=== PATIENT | male | born 1980 | race Caucasian/White ===

== ENCOUNTER → 2022-06-19 11:05 | Outpatient (BNVA) | payer MEDICAID, SELFPAY | PROVIDERS: PCP Registered Nurse; Visit Provider Surgery | DX: L72.11 Pilar cyst (principal) | CPT/HCPCS: 99202 ==

== ENCOUNTER 2022-07-06 10:42 | Outpatient (REF) | payer MEDICAID, SELFPAY ==
[2022-07-06 10:46] VITALS: BP 146/83; PULSE 89; RESP 16; TEMP 36.6; O2SAT 98
[2022-07-06 10:48] VITALS: BMI 21.7
[2022-07-06 11:50] VITALS: BP 128/85; PULSE 81; RESP 16; O2SAT 98
--- NOTE | 2022-07-06 11:53 | W.PM.OPN ---
Operative Note Operative Note Date of Service: 07/06/22 Narrative: Preop diagnosis: [2.5x2.3cm scalp cyst] Postop diagnosis: [same] Procedure: Excision of 2.5 by 2.3 cm scalp cyst with primary closure Surgeon: Patrick Heard MD Assist: [] Anesthesia: [Lidocaine, 1%/bupivacaine, 0.5% with epi in a 50 50 mix] Estimated blood loss: [3cc] Specimen: [Scalp cyst] Intraoperative findings: [None infected scalp cyst] Indications: [The patient is a 41-year-old gentleman who has had a longstanding cyst on his scalp that is becoming enlarged and progressively symptomatic regarding grooming. There has been no symptoms of infection or drainage. The option of continued observation versus excision were reviewed as well as the inherent risks of bleeding, infection, recurrence of other cysts, possible need for another procedure or delayed healing in the event of a complication and a scar. Patient seemed understand his options and wanted to proceed.] Procedure: [The patient was identified in the minor procedure room and an appropriate timeout confirming the patient and the procedure performed. He has no allergies and after being seated with his head at roughly 45 degrees, his scalp cyst was properly identified and prepped with Betadine that was allowed to dry. He was then draped in the usual manner and the local mix infiltrated with excellent effect. A 3 cm incision was made sharply and carried to the cyst wall. The cyst was then carefully removed with sharp and blunt dissection and in doing this, the capsule tore expressing its contents. Once the cyst was completely removed it was sent for permanent section and the pocket irrigated copiously with the remaining local. Under loupe magnification, there is no evidence of ongoing bleeding so the skin was closed with interrupted 3-0 surgipro sutures. There is washed and dried and bacitracin applied followed by an ice pack. Patient tolerated the procedure well and discharge instructions were reviewed and questions answered. He will see me in 1 week for suture removal, sooner if he has problems.]
== END 2022-07-06 10:43 | disposition home or self-care (01) ==
LOC: HO.MS 10:42
PROVIDERS: PCP Registered Nurse; Visit Provider Surgery
PROC: (CPT 11423; principal; 2022-07-06 11:00)
DX: L72.11 Pilar cyst (principal)
CPT/HCPCS: 11423; 88304

== ENCOUNTER → 2022-07-13 10:31 | Outpatient (BNVA) | payer MEDICAID, SELFPAY | PROVIDERS: PCP Registered Nurse; Visit Provider Surgery | DX: Z13.89 Encounter for screening for other disorder (principal) ==

== ENCOUNTER 2025-04-14 14:22 | Outpatient (REF) | payer MEDICAID, SELFPAY ==
--- OUTSIDE RECORDS SUMMARY | 2025-04-14 14:00 | XMS_ITS | Encounter Summary ---
Author Organization [employer] Address [address] [place] [address] Care Team Providers Care Chainer Name Role Phone [facility] Primary Care Provider Reason for Visit * Reason Comments Diabetes Encounter Details Date Type Department Care Team ([facility] st Contact Info) Description 04/14/2025 2:00 PM EDT Office Visit [facility] [address], [place] [id number] [facility] [address] [place] [address] Diabetes mellitus without complication (HCC) Social History Tobacco Use Types Packs/Day Years Used Date Smoking Tobacco: Former Cigarettes Passive Smoke Exposure: Past Smokeless Tobacco: Never Tobacco Cessation:Counseling Given: Not Answered Alcohol Use Standard Drinks/Week Comments Never 0 (1 standard drink = 0.6 oz pur e alcohol) Depression Answer Date Recorded Patient Health Questionnaire-9 Score 0 04/14/2025 Patient Health Questionnaire-9 Score 0 04/14/2025 Last PHQ-9: Questionnaire Data Not on file 1 Housing Stability Answer Date Recorded What is your housing situation today? I have barrington simpson 10/28/[address] you li ve. Do you have problems with any of the following? None of the above 10/28/2024 Food Insecurity Answer Date Recorded Within the past 12 months, y ou worried that your food would run out before you got money to buy more: Never True 10/28/2024 Within the past 12 months,th e food you bought just didn't last and you didn't have enough money to get more: Never True Transportation Answer Date Recorded In the past 12 months, has l ack of transportation kept you from medical appts, meetings, work or from getting things needed for daily living? No 10/28/2024 Utilities Answer Date Recorded In the past 12 months, has t he electric, gas, oil or water company threatened to shut off services in your home? No 10/28/2024 Depression Answer Date Recorded Patient Health Questionnaire-2 Score 0 04/14/2025 Internet Access Answer Date Recorded Internet Access Q1 Yes 10/28/2024 Internet Access Q2 Not on file 10/28/2024 Sex and Gender Information Value Date Recorded Sex Assigned at Male 04/30/2022 10:17 AM EDT Legal Sex Male 10:17 AM EDT Gender Identity Male 04/30/2022 10:17 AM EDT Sexual Orientation Straight 04/30/2022 10 :17 AM EDT documented as of this encounter Last Filed Vital Signs Vital Sign Reading Time Taken Comments Blood Pressure 130/86 04/14/2025 1:52 PM EDT Pulse 78 04/14/2025 1:52 PM EDT Temperature 36.3 C (97.4 F) 04/14/2025 1:52 PM EDT Respiratory Rate 18 04/14/2025 1:52 PM EDT Oxygen Saturation - - Inhaled Oxygen Concentration - - Weight 73.9 kg (163 lb) 04/14/2025 1:52 PM EDT Height 182.9 cm (6') 04/14/2025 1:52 PM EDT Body Mass Index 22.11 04/14/2025 1:52 PM EDT documented in this encounter Functional Status * Over the past 2 weeks, how often have you been bothered by any of the following problems? Question Answer Date of Assessment Author Patient Health Questionnaire-2 Score 0 04/14/2025 1:59 PM EDT Anu Gupta MA * Little interest or pleasure in doing things Answer Date of Assessment Author Not at all 04/14/2025 1:59 PM EDT Anu Gordon MA * Feeling down, depressed, or hopeless Answer Date of Assessment Author Not at all 04/14/2025 1:59 PM EDT Anu Gordon MA * Trouble falling or staying asleep, or sleeping too much Answer Date of Assessment Author Not at all 04/14/2025 1:59 PM EDT Anu Gordon MA * Feeling tired or having little energy Answer Date of Assessment Author Not at all 04/14/2025 1:59 PM EDT Anu Gordon MA * Poor appetite or overeating Answer Date of Assessment Author Not at all 04/14/2025 1:59 PM EDT Anu Gordon MA * Feeling bad about yourself - or that you are a failure or have let yourself or your family down Answer Date of Assessment Author Not at all 04/14/2025 1:59 PM EDT Anu Gordon MA * Trouble concentrating on things, such as reading the newspaper or watching television Answer Date of Assessment Author Not at all 04/14/2025 1:59 PM EDT Anu Gordon MA * Moving or speaking so slowly that other people could have noticed? Or the opposite - being so fidgety or restless that you have been moving around a lot more than usual. Answer Date of Assessment Author Not at all 04/14/2025 1:59 PM EDT Anu Gordon MA * Thoughts that you would be better off or hurting yourself in some way Answer Date of Assessment Author Not at all 04/14/2025 1:59 PM EDT Anu Gordon MA * Patient Health Questionnaire-9 Score Answer Date of Assessment Author 0 04/14/2025 1:59 PM EDT Anu Gordon MA * Over the last 2 weeks, how often have you been bothered by any of the following problems? Question Answer Date of Assessment Author Feeling nervous, anxious, or on edge 0 04/14/2025 1:59 PM EDT Anu Gupta MA Not being able to stop or control worrying 0 04/14/2025 1:59 PM EDT Anu Gupta MA Worrying too much about different things 0 04/14/2025 1:59 PM EDT Anu Gupta MA Trouble relaxing 0 04/14/2025 1:59 PM EDT R Anu Munoz MA Being so restless that it is hard to sit still 0 04/14/2025 1:59 PM EDT Anu Gupta MA Becoming easily annoyed or irritable 0 04/14/2025 1:59 PM EDT Anu Gupta MA Feeling afraid as if something awful might happen 0 04/14/2025 1:59 PM EDT Anu Gunderson MA DAVID-7 Total Score 0 04/14/2025 1:59 PM EDT Anu Gupta MA documented as of this encounter Plan of Treatment Scheduled Orders Name Type Priority Associated Diagnoses Orde r Schedule Lipid Panel, Standard Lab Routine Diabetes mellitus without complication (HCC) Expected: 04/14/2025 (Approximate), Expires: 04/14/2026 Basic Metabolic Panel Lab Routine Diabetes mellitus without complication (HCC) Expected: 04/14/2025 (Approximate), Expires: 04/14/2026 documented as of this encounter Procedures Procedure Name Priority Date/Time Associated Diagnosis Comments ALBUMIN, RANDOM URINE W/CREATININE Routine 04/14/2025 2:31 PM EDT Diabetes mellitus without complication (HCC) POCT GLYCATED HEMOGLOBIN, TOTAL Routine 04/14/2025 2:05 PM EDT Diabetes mellitus without complication (HCC) POCT GLUCOSE Routine 04/14/2025 2:00 PM EDT Diabetes mellitus without complication (HCC) documented in this encounter Results * Albumin, Random Urine W/Creatinine (04/14/2025 2:31 PM EDT) Creatinine, Urine 274.27 mg/dL [facility] Microalbumin Urine 23.0 mg/L H [facility] Microalbum Creatinine Ratio Ur 8.3 <30 ug/mg cr [facility] Comment:Albumin/Creatinine R atio Reference Ranges: Normal: < 30 ug/mg creatinine Microalbuminuria: 30 - 300 ug/mg creatinineClinical Albuminuria: > 300 ug/mg creatinine Urine 04/14/2025 2:31 PM EDT 04/14/2025 3:59 PM EDT Result [facility] URINE ORDERABLES Final Re sult [facility] [address] [place] [address] [phone] * (ABNORMAL) POCT Hgb A1c (04/14/2025 2:05 PM EDT) Hemoglobin A1C 5.9(A) 4.0 - 5.7 % Blood 04/14/2025 2:05 PM EDT Result [facility] POINT OF CARE TEST ENTER/EDIT ORDERABLES Final Result * POCT Glucose (04/14/2025 2:00 PM EDT) Glucose Blood, POC 113 60 - 200 mg/dL Blood Capillary blood specimen / Unknown 04/14/2025 2:00 PM EDT Result [facility] POINT OF CARE TEST ENTER/EDIT ORDERABLES Final Result documented in this encounter Visit Diagnoses Diagnosis Diabetes mellitus without complication (HCC) Type II or unspecified type diabetes mellitus without mention of complication, not stated as uncontrolled documented in this encounter Additional Health Concerns Assessment Noted Time PHQ-9 Depression Total Score: 0 04/14/20 25 1:59 PM EDT documented as of this encounter Care Teams Chainer Relationship Specialty Start Date End Date Esmont Lesli [facility] [address] [place] [id number] PCP - General Family Medicine 12/12/22 documented as of this encounter
[2025-04-14 16:39] LABS: Anion Gap 10 (12-20); Blood Urea Nitrogen 24 mg/dL (9-16); Calcium 10.1 mg/dL (8.4-10.2); Carbon Dioxide 27 mmol/L (22-29); Chloride 104 mmol/L (96-108); Cholesterol 236 mg/dL (<200); Estimated Glomerular Filt Rate 46; HDL Cholesterol 44 mg/dL (>40); Potassium 4.3 mmol/L (3.3-5.1); Sodium 137 mmol/L (135-145); Triglycerides 117 mg/dL (<150)
[2025-04-14 17:29] LABS: Microalbum/Creatinine Ratio Ur 8.3 ug/mg cr (<30)
--- OUTSIDE RECORDS SUMMARY | 2025-04-14 18:09 | XMS_ITS | Clinical Summary ---
Author Organization [employer] Address [address] [facility] 7t [place] [address] Care Team Providers Care Railroad Car Cleaning Supervisor Name Role Phone Lesli Perez [facility] Primary Care Provider [phone] Allergies No known active allergies Medications * This document contains information received from the source organization and may not represent a complete record from that organization. Propylene Glycol-Glycerin (Artificial Tears) 1-0.3 % solution Administer 1 application into affected eye(s) 4 times daily. 15 mL 01/19/20 23 Active melatonin 5 MG tabletIndications: Anxiety Take 1 tablet by oral route every evening 2-3 hours before bed 90 tablet 3 09/23/19 24 Active hydrOXYzine HCl (Atarax) 25 MG tabletIndications: Anxiety TAKE 1 TABLET (25 MG) BY MOUTH EVERY 6 (SIX) HOURS IF NEEDED FOR ANXIETY. 120 tablet 10/22/19 24 Active rosuvastatin (Crestor) 10 MG tabletIndications: Mixed hyperlipidemia TAKE 1 TABLET BY MOUTH AT BEDTIME 90 tablet 3 10/17/19 25 Active olmesartan (BENIcar) 5 MG tabletIndications: Primary hypertension TAKE 1 TABLET BY MOUTH EVERY DAY IN THE MORNING 90 tablet 3 10/17/19 25 Active Alcohol Swabs (Alcohol Prep) padsIndications:Di abetes mellitus without complication (HCC) Use one pad each to prep skin prior to injection as directed 100 each 10/29/19 25 Active glucose blood test stripIndications:D iabetes mellitus without complication (HCC) Use as directed to check blood sugar three times daily 100 each 12 10/29/19 25 Active TRUEplus Lancets 33G miscIndications:Di abetes mellitus without complication (HCC) USE TO CHECK BLOOD SUGAR THREE TIMES A DAY 100 each 3 10/31/19 25 Active Blood Glucose Monitoring Suppl (FreeStyle Lite) w/Device kitIndications:Danika betes mellitus without complication (HCC) 1 each 3 times daily. USE TO CHECK BLOOD SUGAR THREE TIMES A DAY 1 kit 10/31/19 25 Active glucose blood (FREESTYLE LITE) test stripIndications:D iabetes mellitus without complication (HCC) USE TO CHECK BLOOD SUGAR THREE TIMES A DAY 100 each 3 10/31/19 25 Active Active Problems Problem Noted Date Diagnosed Date Primary hypertension 09/11/2022 Overview (12/12/2022): Olmesartan 5mg daily Prior intolerance to ACEi (cough) Maintenance: BMP: 08/2022 Lipid Panel: 08/2022 ASCVD Risk: 1.9% EKG: Obtain baseline at f/u - Aerobic exercise to reduce BP. Initial goal of 30 min walk 3-5x/week. Increase as tolerated. - low-sodium diet (goal: <2g/day) and heart healthy diet such as DASH to reduce BP and prevent ASCVD. - Home BP monitoring 1-2 x day with goal of <140/90. - Seek immediate medical attention for chest pain, palpitations, SOB, syncope, or sudden changes in mental status. - Do not change or discontinue current prescriptions without first consulting health care provider Assessment & Plan (03/18/2023 1:50 PM EDT): Well controlled Continue current regimen Assessment & Plan (12/12/2022 9:39 AM EDT): Well controlled Continue current regimen Assessment & Plan (09/11/2022 1:12 PM EDT): Well controlled Routine labs ordered today Continue current regimen Mixed hyperlipidemia 09/11/2022 Overview (09/11/2022): Rosuvastatin 10mg daily Assessment & Plan (03/18/2023 1:51 PM EDT): Well controlled Continue current regimen Assessment & Plan (12/12/2022 9:39 AM EDT): Well controlled continue current regimen Assessment & Plan (09/11/2022 1:15 PM EDT): Repeat lipid panel ordered today Continue current regimen Diabetes mellitus without complication Overview (12/12/2022): Metformin 500mg xr daily (unable to tolerate high dose d/t GI s/e) Adheres to strict diet BMP: 08/2022 Microalbumin: Pending Foot Exam: 11/2022 Risk 0 Eye Exam: [facility] eye care Lipid panel:08/2022 ASCVD: 1.9% Statin: Yes ASA: No RAMONA/ARB: Yes Encouraged regular aerobic exercise for improved glycemic control Encouraged daily foot checks Encouraged lean protein snacks and to avoid foods high in sugar and simple carbohydrates Treatment Goals: A1c goal: <7% FBG goal: <130 2 hour post prandial goal: <180 Assessment & Plan (03/18/2023 1:50 PM EDT): Lab Results Component Value Date HGBA1C 5.9 03/18/2023 STOP metformin Continue to manage with diet only Assessment & Plan (12/12/2022 9:38 AM EDT): Well controlled Continue current regimen Lab Results Component Value Date HGBA1C 6.1 (A) 09/05/2022 Assessment & Plan (09/11/2022 1:14 PM EDT): Lab Results Component Value Date HGBA1C 6.1 (A) 09/05/2022 Continue current regimen BS well controlled Resolved Problems Problem Noted Date Diagnosed Date Resolved Date Stye 01/18/2023 04/24/2024 Assessment & Plan (01/18/2023 3:37 PM EDT): Pt w likely stye ,slight enlarged Normal vision and no concern x cellulitis -advised warm compresses -tylenol prn -eye lubricant -will do keflex BIDx 5 days x noted slight larger -alarm signs and symptoms explained to pt Impacted ear wax 01/18/2023 04/24/2024 Assessment & Plan (01/18/2023 3:37 PM EDT): Dry wax in right ear -trial w debrox x 4 to 5 days Encounters Date Type Department Care Team Description 04/14/2025 2:00 PM EDT Office Visit [facility] MED[facility] [address] [place] [address] [facility] Diabetes mellitus without complication (HCC) 04/14/2025 Travel 04/06/2025 Patient Outreach [facility] [address] [place] [address] [facility] Pre-visit Planning (Pre-visit planning - LVM ) from Last 3 Months Immunizations Immunization Administration Dates Next Due Tdap 09/05/2022 Family History Medical History Relation Name Comments Colon cancer Father's Brother Diabetes type II Maternal Grandfather Diabetes type II Mother Diabetes type II Paternal Grandmother Relation Name Status Comments Father's Brother Maternal Grandfather Mother Paternal Grandmother Social History Tobacco Use Types Packs/Day Years [...] Orientation Straight 04/30/2022 10 :17 AM EDT Last Filed Vital Signs Vital Sign Reading Time Taken Comments Blood Pressure 130/86 04/14/2025 1:52 PM EDT Pulse 78 04/14/2025 1:52 PM EDT Temperature 36.3 C (97.4 F) 04/14/2025 1:52 PM EDT Respiratory Rate 18 04/14/2025 1:52 PM EDT Oxygen Saturation 99% 10/28/2024 2:19 PM EDT Inhaled Oxygen Concentration - - Weight 73.9 kg (163 lb) 04/14/2025 1:52 PM EDT Height 182.9 cm (6') 04/14/2025 1:52 PM EDT Body Mass Index 22.11 04/14/2025 1:52 PM EDT Plan of Treatment Health Maintenance Due Date Last Done Comments Family Planning (PISQ) 1995 HPV Vaccines (1 - Male 3-dose series) 1995 Hepatitis B Vaccines (1 of 3 - 19+ 3-dose series) 1999 Pneumococcal Vaccine: Pediatrics (0 to 5 Years) and At-Risk Patients (6 to 49) Years (1 of 2 - PCV) 1999 Diabetes: Urine Protein Screening 05/09/2023 04/14/2025, 05/09/2022 COVID-19 Vaccine ( - season) 2025 Influenza Vaccine (#1) 2025 Diabetes: Foot Exam 04/24/2025 04/24/2024, 04/24/2024, 12/12/2022, Additional history exists Diabetes: Hemoglobin A1C 10/13/202504/14/ 025, 10/28/2024, 04/24/2024, Additional history exists Alcohol/Substance Use Screening 10/28/2025 10/28/2024 Disability Screening 10/28/2025 10/28/2024 SDOH Screening 10/28/2025 10/28/2024 Depression Screening 04/14/2026 04/14/2025, 04/14/20 Lipid Panel 04/14/2026 04/14/2025, 03/0 01/2023, 05/09/2022 Tobacco Screening 04/14/2026 04/14/2025 Eye Exam 05/01/2026 05/01/2024, 05/0 07/2022, 10/29/2022, Additional history exists Zoster Vaccines (1 of 2) 2030 DTaP/Tdap/Td Vaccines (2 - Td or Tdap) 09/05/2032 09/05/2022 RSV Patients and Patients Aged 60 years or older (1 - 1-dose 75+ series) 2055 HIV Screening Completed 05/14/2022 Hepatitis C Screening Completed 05/14/2022 HIB Vaccines Aged Out No longer eligi ble based on patient's age to complete this topic Hepatitis A Vaccines Aged Out No long er eligible based on patient's age to complete this topic IPV Vaccines Aged Out No longer eligi ble based on patient's age to complete this topic Meningococcal B Vaccine Aged Out No l onger eligible based on patient's age to complete this topic Meningococcal Vaccine Aged Out No riley keo eligible based on patient's age to complete this topic RSV under 20 months Aged Out No longe r eligible based on patient's age to complete this topic Rotavirus Vaccines Aged Out No longer eligible based on patient's age to complete this topic Procedures Procedure Name Priority Date/Time Associated Diagnosis Comments ALBUMIN, RANDOM URINE W/CREATININE Routine 04/14/2025 2:31 PM EDT Diabetes mellitus without complication (HCC) BASIC METABOLIC PANEL Routine 04/14/2025 2:31 PM EDT Diabetes mellitus without complication (HCC) LIPID PANEL, STANDARD Routine 04/14/2025 2:31 PM EDT Diabetes mellitus without complication (HCC) POCT GLYCATED HEMOGLOBIN, TOTAL Routine 04/14/2025 2:05 PM EDT Diabetes mellitus without complication (HCC) POCT GLUCOSE Routine 04/14/2025 2:00 PM EDT Diabetes mellitus without complication (HCC) ZZZ HISTORICAL HEPATITIS C AB W/REFL TO HCV RNA, QN, PCR Routine 05/14/2022 8:14 AM EST HIV 1/2 ANTIGEN/ANTIBODY, FOURTH GENERATION W/RFL Routine 05/14/2022 8:14 AM EST from Last 3 Months or Most Recently Relevant to Health Maintenance Results * Albumin, Random Urine W/Creatinine (04/14/2025 2:31 PM EDT) Creatinine, Urine 274.27 mg/dL [facility] Microalbumin Urine 23.0 mg/L [facility] Microalbum Creatinine Ratio Ur 8.3 <30 ug/mg cr [facility] Comment:Albumin/Creatinine R atio Reference Ranges: Normal: < 30 ug/mg creatinine Microalbuminuria: 30 - 300 ug/mg creatinineClinical Albuminuria: > 300 ug/mg creatinine Urine 04/14/2025 2:31 PM EDT 04/14/2025 3:59 PM EDT [facility] PAPER COATING SUPERVISOR LAB URINE ORDERABLES Final Re sult [facility] [address] [place] [phone] * (ABNORMAL) Lipid Panel, Standard (04/14/2025 2:31 PM EDT) Triglycerides 117 <150 mg/dL [facility] Comment:Desirable Triglyceri de: less than 150 mg/dLBorderline High Triglyceride 150-199 mg/dLHigh Triglyceride: 200-499 mg/dLVery High Triglyceride: greater than or equal to 5OO mg/dL Cholesterol 236(H) <200 mg/dL [facility] Comment:Desirable Cholestero l: less than 200 mg/dLBorderline High Cholesterol: 200-239 mg/dLHigh Cholesterol: greater than 239 mg/dL LDL Cholesterol Calculated 169(H) <100 mg/dL [facility] Comment:Desirable LDL: less than 100 mg/dLNear Optimal/Above Optimal LDL: 110- 129 mg/dLBorderline High LDL: 130-159 mg/dLHigh LDL: 160-189 mg/dLVery High LDL: greater than or equal to 190 mg/dL HDL Cholesterol 44 >40 mg/dL [facility] Comment:Desirable HDL: great er than 40 mg/dL Note: This HDL assay may give artificially low results in patients with liver disease. Blood Venous blood specimen / Unknown 04/14/2025 2:31 PM EDT 04/14/2025 3:50 PM EDT [facility] PAPER COATING SUPERVISOR LAB BLOOD ORDERABLES Final Re sult [facility] [address] [place] [phone] * (ABNORMAL) Basic Metabolic Panel (04/14/2025 2:31 PM EDT) Sodium 137 135 - 145 mmol/L [facility] Potassium 4.3 3.3 - 5.1 mmol/L [facility] Chloride 104 96 - 108 mmol/L [facility] Carbon Dioxide 27 22 - 29 mmol/L [facility] Anion Gap 10(L) 12 - 20 [facility] Urea Nitrogen (BUN) 24(H) 9 - 16 mg/dL [facility] Creatinine, Serum 1.63(H) 0.5 - 1.4 mg/dL [facility] Estimated Glomerular Filt Rate 46 [facility] Comment:Chronic Kidney Disea se: Estimated GFR < 60 mL/min/1.50u0Eyaelm Kidney Disease: Estimated GFR < 15 mL/min/1.73m2 Glucose 99 60 - 115 mg/dL [facility] Calcium 10.1 8.4 - 10.2 mg/dL [facility] Blood Venous blood specimen / Unknown 04/14/2025 2:31 PM EDT 04/14/2025 3:50 PM EDT Result [facility] LAB BLOOD ORDERABLES Final Re sult [facility] [address] [place] [phone] * (ABNORMAL) POCT Hgb A1c (04/14/2025 2:05 PM EDT) Hemoglobin A1C 5.9(A) 4.0 - 5.7 % Blood 04/14/2025 2:05 PM EDT Result [facility] POINT OF CARE TEST ENTER/EDIT ORDERABLES Final Result * POCT Glucose (04/14/2025 2:00 PM EDT) Pathologist [facility] Glucose Blood, POC 113 60 - 200 mg/dL Blood Capillary blood specimen / Unknown 04/14/2025 2:00 PM EDT Result [facility] POINT OF CARE TEST ENTER/EDIT ORDERABLES Final Result * HEPATITIS C AB W/REFL TO HCV RNA, QN, PCR (05/14/2022 8:14 AM EST) Pathologist [facility] HEPATITIS C ANTIBODY NON-REACTI VE NON-REACT POLA [facility] INDEX 0.04 <1.00 [facility] Comment: HCV antibody was non-reactive. There is no laboratory evidence of HCV infection. In most cases, no further action is required. However, if recent HCV exposure is suspected, a test for HCV RNA (test code 69233) is suggested. For additional information please refer to http://education.[employer]/faq/STK64u3 (This link is being provided for informational/ educational purposes only.) 05/14/2022 8:14 AM EST Result [facility] Papito Bishop MD HISTORICAL/NON ORDERABLE LABS Fi nal Result CONVERTED LEGACY LABS * HIV 1/2 ANTIGEN/ANTIBODY,FOURTH GENERATION W/RFL (05/14/2022 8:14 AM EST) HIV-1/2 ANTIGEN AND ANTIBODIES, 4TH GENERATION W/ REFLEX NON-REACT POLA NON-REACT POLA [facility] Comment: HIV-1 antigen and HIV-1/HIV-2 antibodies were not detected. There is no laboratory evidence of HIV infection. PLEASE NOTE: This information has been disclosed to you from records whose confidentiality may be protected by state law. If your state requires such protection, then the state law prohibits you from making any further disclosure of the information without the specific written consent of the person to whom it pertains, or as otherwise permitted by law. A general authorization for the release of medical or other information is NOT sufficient for this purpose. For additional information please refer to http://education.[employer]/faq/XBD232 (This link is being provided for informational/ educational purposes only.) The performance of this assay has not been clinically validated in patients less than 2 years old. 05/14/2022 8:14 AM EST Papito Bishop MD LAB BLOOD ORDERABLES Final Resul t Performing Organization Address [facility] de Phone Number CONVERTED LEGACY LABS from Last 3 Months or Most Recently Relevant to Health Maintenance Insurance [facility] C3 HSN FULL Care Teams Railroad Car Cleaning Supervisor Relationship Specialty Start Date End Date Lesli Perez FNP [address] [place] [phone] PCP - General Family Medicine 12/12/22
--- OUTSIDE RECORDS SUMMARY | 2025-04-14 18:09 | XMS_ITS | Encounter Summary ---
Author Organization [employer] Address [address] [facility] 7t [place] [address] Care Team Providers Care Swage Tender Name Role Phone Lesli Perez [facility] Primary Care Provider [phone] Encounter Details Date Type Department Care Team (Latest Contact Info) Description 04/14/2025 Travel Social History Tobacco Use Types Packs/Day Years Used Date Smoking Tobacco: Former Cigarettes Passive Smoke Exposure: Past Smokeless Tobacco: Never Alcohol Use Standard Drinks/Week Comments Never 0 [...] AM EDT documented as of this encounter Functional Status * Over the [...] Trouble relaxing 0 04/14/2025 1:59 PM EDT Anu Mae [place] Being so restless that it is [...] as of this encounter Plan of Treatment Not on file documented as of this encounter Visit Diagnoses Not on filedocumented in this encounter Additional Health Concerns Assessment Noted Time PHQ-9 Depression Total Score: 0 04/14/20 25 1:59 PM EDT documented as of this encounter Care Teams Swage Tender Relationship Specialty Start Date End Date Lesli Perez FNP [address] [place] [phone] PCP - General Family Medicine 12/12/22 documented as of this encounter
--- OUTSIDE RECORDS SUMMARY | 2025-04-14 18:09 | XMS_ITS | Encounter Summary ---
Author Organization [employer] Address [address] [facility] 7t [place] [address] Care Team Providers Care Host Coordinator Name Role Phone [facility] Primary Care Provider [phone] Encounter Details Date Type Department Care Team (Late st Contact Info) Description 10/07/2023 Orders Only [facility] MEDICINE [address] [place], [place] [phone] [facility] [address] [place], [place] [phone] Social History Tobacco Use Types Packs/Day Years Used Date Smoking Tobacco: Former Cigarettes Passive Smoke Exposure: Past Smokeless Tobacco: Never Alcohol Use Standard Drinks/Week Comments Never 0 (1 standard drink = 0.6 oz pur e alcohol) Depression Answer Date Recorded Patient Health Questionnaire-9 Score 0 10/07/2023 Patient Health Questionnaire-9 Score 0 10/07/2023 Last PHQ-9: Questionnaire Data Not on file 0 10/07/2023 Housing Stability Answer Date Recorded What is your housing situation today? I have barrington simpson 04/22/[address] you li ve. Do you have problems with any of the following? None of the above 04/22/2023 Food Insecurity Answer Date Recorded Within the past 12 months, y ou worried that your food would run out before you got money to buy more: Never True 04/22/2023 Within the past 12 months,th e food you bought just didn't last and you didn't have enough money to get more: Never True Transportation Answer Date Recorded In the past 12 months, has l ack of transportation kept you from medical appts, meetings, work or from getting things needed for daily living? No 04/22/2023 Utilities Answer Date Recorded In the past 12 months, has t he electric, gas, oil or water company threatened to shut off services in your home? No 04/22/2023 Depression Answer Date Recorded Patient Health Questionnaire-2 Score 0 10/07/2023 Sex and Gender Information Value Date Recorded [...] Assessment Author Patient Health Questionnaire-2 Score 0 10/07/2023 12:05 PM EDT Anu Real [place] * Over the past 2 weeks, how often have you been bothered by any of the following problems? Question Answer Date of Assessment Author Little interest or pleasure in doing things Not at all 10/07/2023 12:05 PM EDT Anu Gupta MA Feeling down, depressed, or hopeless Not at all 10/07/2023 12:05 PM EDT Anu Gupta [place] Trouble falling or staying asleep, or sleeping too much Not at all 10/07/2023 12:05 PM EDT Anu Green MA Feeling tired or having little energy Not at all 10/07/2023 12:05 PM VENUST Anu Gupta MA Poor appetite or overeating Not at all 10/07/2023 12 :05 PM VENUST Anu Gupta MA Feeling bad about yourself - or that you are a failure or have let yourself or your family down Not at all 10/07/2023 12:05 PM VENUST Anu Gupta MA Trouble concentrating on things, such as reading the newspaper or watching television Not at all 10/07/2023 12:05 PM VENUST Anu Gupta MA Moving or speaking so slowly that other people could have noticed? Or the opposite - being so fidgety or restless that you have been moving around a lot more than usual. Not at all 10/07/2023 12:05 PM EDT Anu Coleman MA Thoughts that you would be better off or hurting yourself in some way Not at all 10/07/2023 12:05 PM EDT Anu Gupta MA Patient Health Questionnaire-9 Score 0 10/07/2023 12:05 PM EDT Anu Real MA documented as of this encounter Plan of Treatment Not on file documented as of this encounter Visit Diagnoses Not on filedocumented in this encounter Additional Health Concerns Assessment Noted Time PHQ-9 Depression Total Score: 0 10/07/19 24 12:05 PM EDT documented as of this encounter Care Teams Host Coordinator Relationship Specialty Start Date End Date Lesli Perez FNP [address] [place] [phone] PCP - General Family Medicine 12/12/22 documented as of this encounter
--- OUTSIDE RECORDS SUMMARY | 2025-04-14 18:09 | XMS_ITS | Encounter Summary ---
Author Organization [employer] Address [address] [place] [address] [address] [place] [address] Care Team Providers Care Single Wire Saw Operator Name Role Phone Lesli Perez [facility] Primary Care Provider Reason for Visit * Reason Comments Med Refill Encounter Details Date Type Department Care Team (Late st Contact Info) Description 07/23/2022 Refill [facility] MEDICINE [address] [place], [place] [phone] Papito Bishop MD [address] [place], [place] [phone] Social History Tobacco Use Types Packs/Day Years Used Date Smoking Tobacco: Never Assessed Sex and Gender Information Value Date Recorded Sex Assigned at Male 04/30/2022 10:17 AM EDT Legal Sex Male 10:17 AM EDT Gender Identity Male 04/30/2022 10:17 AM EDT Sexual Orientation Straight 04/30/2022 10 :17 AM EDT documented as of this encounter Plan of Treatment Not on file documented as of this encounter Visit Diagnoses Not on filedocumented in this encounter Care Teams Single Wire Saw Operator Relationship Specialty Start Date End Date Lesli PerezDAGO [address] [place] [address] PCP - General Family Medicine 12/12/22 documented as of this encounter
== END 2025-04-14 14:23 | disposition home or self-care (01) ==
LOC: HO.HHCL 14:22
PROVIDERS: PCP Registered Nurse; Visit Provider Registered Nurse
DX: E11.9 Type 2 diabetes mellitus without complications (principal)
CPT/HCPCS: 36415; 80048; 80061; 82043; 82570